=== PATIENT | female | born 1955 | race Two or more races ===

== ENCOUNTER 2020-07-30 13:00 | Outpatient (CLI) | payer MEDICARE, BC ==
[~2020-07-30 13:00] MED LIST: CITALOPRAM HBR10 M1 ORAL; TRAZODONE HCL50 MG ORAL
== END 2020-07-30 15:00 | disposition home or self-care (01) ==
LOC: PAN 13:00
DX: R10.9 Unspecified abdominal pain (principal)
CPT/HCPCS: 99212

== ENCOUNTER 2020-08-17 07:06 | Day surgery (SDC) | payer MEDICARE, BC ==
[~2020-08-17] VITALS: Ht 157.5 cm; Wt 77.1 kg
[2020-08-17] VITALS (9 sets, daily range): BP systolic 116–132; BP diastolic 67–77
[~2020-08-17 07:06] MED LIST changes: +CRESTOR10 M2 ORAL; +LR 1000ml 1,000 ML IVLG SCH
--- NOTE | 2020-08-17 08:52 | Pre-Procedure Note/Attestation ---
Pre-Procedure Note/Attestation Complete Prior to Procedure Planned Procedure: not applicable Procedure Narrative: esophagogastroduodenoscopy and colonoscopy Indications for Procedure Pre-Operative Diagnosis: screening colon, GERD Attestation I attest that I discussed the nature of the procedure; its benefits; risks and complications; and alternatives (and the risks and benefits of such al ternatives), prior to the procedure, with the patient (or the patient's legal technical sales representatives). I attest that, if there was a reasonable possibility of needing a blood transfusion, the patient (or the patient's legal technical sales representatives) was given the [facility] standardized written summary, pursuant to the [employer] Blood Safety Act ([place] Health and Safety Code # 1645, as amended). I attest that I re-evaluated the patient just prior to the surgery and that there has been no change in the patient's H&P, except as documented below: Yovani Flowers MD Aug 17, 2020 08:52
--- NOTE | 2020-08-17 08:52 | Short Stay Surgery H&P ---
History of Present Illness History of Present Illness Chief Complaint see office consult note HPI Neelam Rodriguez is a 65 year old female who was admitted on for Colon Screening Patient History Allergies: Coded Allergies: No Known Allergies (Unverified , 04/14/14) Medication History Scheduled Citalopram Hydrobromide* (Citalopram Hbr*), 10 MG ORAL DAILY, (Reported) Rosuvastatin Calcium* (Crestor*), 5 MG ORAL DAILY, (Reported) Trazodone Hcl* (Desyrel*), 25 MG ORAL BEDTIME, (Reported) Physical Exam Vital Signs Last Vital Signs Date Time Temp Pulse Resp B/P (MAP) Pulse Ox O2 Delivery O2 Flow Rate FiO2 08/17/20 07:23 Room Air 08/17/20 07:23 97.7 70 18 125/77 96 Plan Attestation Are the patient's medical conditions optimized for surgery? Yovani Flowers MD Aug 17, 2020 08:52
[2020-08-17] MEDS ORDERED: Midazolam 2mg/2ml Inj ONE (09:00)
[2020-08-17] MEDS ORDERED: LR 1000ml ONE (09:00)
[2020-08-17] MEDS ORDERED: fentaNYL 100 mcg/2 mL IV ONE (09:00)
--- NOTE | 2020-08-17 09:14 | Anethesia Preoperative Eval ---
Anesthesia Pre-op PMH/ROS General Date of Evaluation: Aug 17, 2020 Time of Evaluation: 08:44 Anesthesiologist: Kely ASA Score: ASA 2 Mallampati Score Class I : Soft palate, uvula, fauces, pillars visible Class II: Soft palate, uvula, fauces visible Class III: Soft palate, base of uvula visible Class IV: Only hard plate visible Mallampati Classification: Class II Surgeon: Lionel Diagnosis: Abdominal pain Surgical Procedure: EGD Colonoscopy Anesthesia History: none Family History: no anesthesia problems Allergies: Coded Allergies: No Known Allergies (Unverified , 04/14/14) Medications: see eMAR Patient NPO?: Yes Past Medical History Cardiovascular: Denies: HTN, CAD, [place], valve dz, arrhythmia, other Pulmonary: Reports: AYAN; Denies: asthma, COPD, other Gastrointestinal/Genitourinary: Reports: GERD Neurologic/Psychiatric: Reports: depression/anxiety; Denies: dementia, CVA, TIA, other Endocrine: Denies: DM, hypothyroidism, steroids, other HEENT: Reports: cataract (L), cataract (R) - s/p Sx Hematology/Immune: Denies: anemia, DVT, bleeding disorder, other Musculoskeletal/Integumentary: Denies: OA, RA, DJD, DDD, edema, other Other: obesity PMH Narrative: as above PSxH Narrative: Bilateral cataracts Anesthesia Pre-op Phys. Exam Physician Exam Last Vital Signs Date Time Temp Pulse Resp B/P (MAP) Pulse Ox O2 Delivery O2 Flow Rate FiO2 08/17/20 07:23 Room Air 08/17/20 07:23 97.7 70 18 125/77 96 Constitutional: NAD Neurologic: CN 2-12 intact Cardiovascular: RRR, no M/R/G Respiratory: CTA Gastrointestinal: other - obesity Airway Exam Mallampati Score: Class II MO: limited Neck: short ROM: full Teeth: intact Dentures: no upper, no lower Anesthesia Pre-op A/P Studies Pre-op Studies: EKG - SR Risk Assessment & Plan Assessment: ASA 2 Plan: Nirmal Fajardo MD Aug 17, 2020 09:14
[2020-08-17] MEDS ORDERED: fentaNYL 100 mcg/2 mL IV PRN (09:15)
--- NOTE | 2020-08-17 09:22 | Endoscopy Procedure Note ---
Endoscopy Procedure Note General Indication for Procedure: screening colon, GERD Procedures Performed: EGD, colonoscopy Operative Findings/Diagnosis: gastritis, one colon polyp Specimen: yes Pt Tolerated Procedure Well: Yes Estimated Blood Loss: none Anesthesia Anesthesiologist: myrna Anesthesia: MAC Inserted Devices Implant(s) used?: No Quality Quality of Bowel Preparation: Good Did scope reach the cecum?: Yes Was there any complications?: No GI Core Measures 50 yrs or older w/o bx or poly: No 10yrs. F/U recommended: Yes If not recommended, why?: Above average risk 18 years or older w/prev. colo: No Yovani Flowers MD Aug 17, 2020 09:22
--- NOTE | 2020-08-17 09:31 | Immediate Post-Op Evaluation ---
Immediate Post-Op Evalulation Immediate Post-Op Evalulation Procedure: Egd Colonoscopy Date of Evaluation: Aug 17, 2020 Time of Evaluation: 09:30 IV Fluids: 600 Blood Products: none Estimated Blood Loss: none Urinary Output: none Blood Pressure Systolic: 130 Blood Pressure Diastolic: 76 Pulse Rate: 68 Respiratory Rate: 20 O2 Sat by Pulse Oximetry: 99 Temperature (Fahrenheit): 97.6 Pain Score (1-10): 1 Nausea: No Vomiting: No Complications none Patient Status: reacts, patent, none Hydration Status: adequate Nirmal Edge MD Aug 17, 2020 09:31
[2020-08-17] MEDS ORDERED: LR 1000ml 1,000 ML IVLG SCH (10:00)
--- NOTE | 2020-08-17 10:03 | 48 Hour Post Anesthesia Eval ---
Post Anesthesia Evaluation Procedure: Egd Colonoscopy Date of Evaluation: Aug 17, 2020 Time of Evaluation: 10:02 Blood Pressure Systolic: 142 0: 76 Pulse Rate: 68 Respiratory Rate: 20 Temperature (Fahrenheit): 97.6 O2 Sat by Pulse Oximetry: 99 Airway: patent Nausea: No Vomiting: No Pain Intensity: 1 Hydration Status: adequate Cardiopulmonary Status: stable Mental Status/LOC: patient returned to baseline Follow-up Care/Observations: N/a Post-Anesthesia Complications: none Follow-up care needed: ready to discharge Nirmal Edge MD Aug 17, 2020 10:03
--- NOTE | 2020-08-23 16:44 | Procedure Note ---
DATE OF PROCEDURE: 08/17/2020 SURGEON: Yovani Flowers MD. PROCEDURE: Upper endoscopy with biopsy and colonoscopy with biopsy. ANESTHESIA: Per Dr. Edge. INSTRUMENT: Olympus adult flexible upper endoscope . INDICATION: Chronic GERD and screening colonoscopy. REASON FOR PROCEDURE: The procedure, risks, benefits, and possible consequences, including hemorrhage, aspiration, perforation and infection, and alternative treatments, were explained to the patient/legal guardian by Dr. Yovani Flowers and the patient/legal guardian understood and accepted these risks. PROCEDURE IN DETAIL: After informed consent was obtained and the patient was adequately sedated, Olympus upper endoscope was advanced from mouth into second portion of duodenum and retroflexion was performed in the stomach. The patient has diffuse gastritis. Random biopsy from antrum was obtained to rule out H. pylori infection. GE junction was found about 38 cm from the incisors. There was a partially distal esophageal ring without any esophagitis. At this time, the upper endoscope was retrieved and the patient was turned over for colonoscopy. First, rectal exam was performed, which was positive for internal hemorrhoids. Then, the scope was advanced from rectum into the cecum documented by appendix orifice, ileocecal valve, and right upper quadrant palpation. Quality of prep was good. The patient had one diminutive polyp in the transverse colon, removed with cold biopsy forceps technique. The patient has diverticulosis, moderate in the left colon. Retroflexion of rectum showed evidence of medium-sized nonbleeding internal hemorrhoids. SUMMARY OF FINDINGS: 1. Gastritis, status post biopsy. 2. Distal esophageal ring. 3. One colonic polyp removed. See above for details. 4. Diverticulosis of the left colon. 5. Internal hemorrhoids. RECOMMENDATIONS: 1. Follow biopsy result and treat accordingly. 2. We recommend repeat colonoscopy in 5 years. Yovani Flowers M.D. DR: YANN JOB#: [id number] CC:
== END 2020-08-17 10:58 | disposition home or self-care (01) ==
LOC: GAS 07:06
DX: Z12.11 Encounter for screening for malignant neoplasm of colon (principal); K21.9 Gastro-esophageal reflux disease without esophagitis; K22.2 Esophageal obstruction; K63.5 Polyp of colon; K57.90 Diverticulosis of intestine, part unspecified, without perforation or abscess without bleeding; K64.8 Other hemorrhoids; K29.50 Unspecified chronic gastritis without bleeding; Z79.899 Other long term (current) drug therapy; G47.33 Obstructive sleep apnea (adult) (pediatric); F32.9 Major depressive disorder, single episode, unspecified; F41.9 Anxiety disorder, unspecified; E66.9 Obesity, unspecified; Z68.31 Body mass index [BMI] 31.0-31.9, adult
CPT/HCPCS: 43239; 45380; 93005; 94003; J2250; J2704; J3010; J7120; U0004; 94150

== ENCOUNTER 2020-08-24 14:49 | Outpatient (CLI) | payer MEDICARE, BC ==
[~2020-08-24 14:49] MED LIST changes: -LR 1000ml 1,000 ML IVLG SCH
--- NOTE | 2020-08-24 14:53 | General Progress Note ---
Subjective ROS Limited/Unobtainable: Yes Allergies: Coded Allergies: No Known Allergies (Unverified , 04/14/14) Objective General Appearance: alert EENT: normal ENT inspection Neck: supple Cardiovascular: normal rate Respiratory/Chest: decreased breath sounds Abdomen: normal bowel sounds, non tender, soft Extremities: non-tender Assessment/Plan Assessment/Plan: gastritis one colon polyp repeat colon in 5 years Yovani Flowers MD Aug 24, 2020 14:53
== END 2020-08-24 16:16 | disposition home or self-care (01) ==
LOC: PAN 14:49
DX: K29.70 Gastritis, unspecified, without bleeding (principal); K63.5 Polyp of colon
CPT/HCPCS: 99212